=== PATIENT | female | born 1950 | race Caucasian/White ===

== ENCOUNTER 2016-09-26 22:28 | Emergency (ER) | payer MEDICARE ==
[~2016-09-26 22:28] MED LIST: ASA CHILDREN'S81 MG PO; BUSPAR DPS10 MG PO; CLARITIN DPS10 MG PO; COLACE-DPS100 MG PO; KLOR-CON M2020 ME1 PO; LASIX DPS40 MG PO; MAALOX DPS30 ML PO; METOPROLOL TART25 MG PO; MYCOSTATIN PWD15 GM TP; NITROSTAT0.4 MG; PRILOSEC DPS20 MG PO; PROVENTIL2.5 MG/0.5 IH; PROZAC40 MG PO; REGLAN-DPS10 MG PO; SYMBICORT80 MCG/6.9 IH; THERAPEUTIC MUL1 TAB PO; TYLENOL DPS325 MG PO; ZOCOR DPS40 MG PO
--- NOTE | 2016-10-06 23:29 | ER ---
ADMIT: 09/26/2016 RM/LOC: ER [facility] MR#: [id number] [facility] [address] [place], [place] [id number] [address] [id number] Emergency Room Report SEX: F AGE: 66 : 1950 DATE: 09/26/2016 See T-sheet for complete H and P. ADDENDUM: A 66-year-old female, comes in complaining of feeling somewhat lightheaded and states that she is having some urinary urgency and dysuria and also states that she fell and hit her head. She states that these symptoms had been present all day today. She felt unsteady this morning, stumbled into a wall and bumped her head and then also had a fall this evening when she stumbled into her TV and bumped her head on the wall again. She does not have a headache, did not lose consciousness, but does feel lightheaded. I did get a CT of her head, which was unremarkable and we checked the urinalysis, which is positive for signs of urinary tract infection. She was started on Bactrim here and given some Zofran and discharged home with Bactrim and Zofran to follow up with her regular physician if not improving. DIAGNOSES: 1. Nausea, vomiting. 2. Urinary tract infection. Олег Gonzalez MD/ harsha JOB #: [id number] CC: Олег Gonzalez MD, Attending Physician Tesfaye Maldonado MD, Family Physician
== END 2016-09-27 00:15 | disposition home or self-care (01) ==
LOC: ER 22:28
DX: N39.0 Urinary tract infection, site not specified (principal); I25.10 Atherosclerotic heart disease of native coronary artery without angina pectoris; Z90.49 Acquired absence of other specified parts of digestive tract; I10 Essential (primary) hypertension; Z88.1 Allergy status to other antibiotic agents; Z88.8 Allergy status to other drugs, medicaments and biological substances